=== PATIENT | female | born 1960 | race Caucasian/White ===

== ENCOUNTER 2017-08-24 21:07 | Emergency (ER) | payer MEDICAID ==
[~2017-08-24] VITALS: Ht 160 cm; Wt 118.4 kg
[2017-08-24 21:20] VITALS: Ht 160 cm; Wt 118.4 kg
[2017-08-25 01:03] VITALS: BP 141/87
== END 2017-08-25 01:03 | disposition home or self-care (01) ==
LOC: ED 21:07
DX: S52.591A Other fractures of lower end of right radius, initial encounter for closed fracture (principal); E78.00 Pure hypercholesterolemia, unspecified; K21.9 Gastro-esophageal reflux disease without esophagitis; Z88.5 Allergy status to narcotic agent; Z88.1 Allergy status to other antibiotic agents; W18.30XA Fall on same level, unspecified, initial encounter; Y93.89 Activity, other specified; Y92.89 Other specified places as the place of occurrence of the external cause; Y99.8 Other external cause status
CPT/HCPCS: A4570; J1885; Q0092